=== PATIENT | female | born 1990 | race Caucasian/White ===

== ENCOUNTER 2020-01-10 10:35 | Emergency (ER) | payer MEDICAID, SELFPAY ==
[2020-01-10 10:42] VITALS: BP 123/77; PULSE 86; RESP 16; TEMP 36.9; O2SAT 98
--- NOTE | 2020-01-10 10:52 | ED.FEMALEGU ---
HPI - Female Genitourinary General Stated complaint: UTI Time Seen by Provider: 01/10/20 10:52 Source: patient and RN notes reviewed History of Present Illness HPI Narrative: Patient is a 29-year-old female who presents the urgent care with complaints of a possible UTI. Patient states that approximately 2 to 3 days ago she started having some burning with urination as well as frequency and urgency. Patient states that that last night she woke up with extreme back pain and vomited once this morning. Patient states she also noticed her urine was cloudy today. Patient denies of any known fever. Denies of abdominal pain. States that she took ibuprofen and started taking Azo 2 nights ago with her last dose being last night. Patient denies of any frequency of urinary tract infections. No other acute complaints. No acute distress noted. Patient aware of the plan of care. Some parts of this dictation were generated by voice recognition software and may contain typographical and/or grammatical inaccuracies. Related Data Allergies Allergy/AdvReac Type Severity Reaction Status Date / Time No Known Allergies Allergy Verified 01/10/20 10:59 Review of Systems Review of Systems: Narrative: CONSTITUTIONAL: Denies fever, chills, or sweats. EYES: Denies visual changes, redness, or discharge. ENT: Denies rhinorrhea, congestion, sore throat, or otalgia. CARDIOVASCULAR: Denies chest pain, palpitations, or edema. RESPIRATORY: Denies cough or dyspnea. GASTROINTESTINAL: Reports of one episode of vomiting without abdominal pain, nausea, diarrhea GENITOURINARY: Reports of dysuria, urinary urgency/frequency, cloudy urine SKIN: Denies rash or itching. MUSCULOSKELETAL: Reports of back pain resolved with ibuprofen NEUROLOGIC: Denies headache, numbness, or weakness. All other systems reviewed are negative, except as documented in HPI. PMFSH Comments At the time of my signature, I reviewed and agree with the nursing past medical, surgical, social, and family history. There is no relevant family history pertinent to the patient complaint. Exam Narrative: Exam Narrative: GENERAL: This is a well-nourished, well-developed patient, in no apparent distress. HEAD: normocephalic, atraumatic. EYES: PERRL. Sclera clear/white. Vision is grossly intact. EARS: External ears normal NOSE: External nose normal with no obvious nasal discharge, nares without redness, no rhinorrhea. THROAT: Mucous membranes moist NECK: Neck supple CARDIOVASCULAR: Regular rate and rhythm without murmurs, gallops, or rubs. RESPIRATORY: Clear to auscultation. Breath sounds equal bilaterally. No wheezes, rales, or rhonchi. GASTROINTESTINAL: Abdomen soft, non-tender, nondistended. Bowel sounds are active. SKIN: warm, intact with no suspicious lesions or rash, good texture and turgor. NEURO: awake, alert, and oriented to person, place and time. There were no obvious focal neurologic abnormalities. EXTREMITIES: No clubbing, cyanosis, or edema. No joint tenderness, effusion, or edema noted. No calf tenderness. Negative Homans sign bilaterally. BACK: Negative bilateral CVA tenderness Course Vital Signs Vital signs: Vital Signs Temperature 98.5 F 01/10/20 10:42 Pulse Rate 86 01/10/20 10:42 Respiratory Rate 16 01/10/20 10:42 Blood Pressure 123/77 01/10/20 10:42 Pulse Oximetry 98 01/10/20 10:42 Temperature 98.5 F 01/10/20 10:42 Pulse Rate 86 01/10/20 10:42 Respiratory Rate 16 01/10/20 10:42 Blood Pressure 123/77 01/10/20 10:42 Pulse Oximetry 98 01/10/20 10:42 Reviewed MDM - Female Genitourinary MDM Narrative Medical decision making narrative: Reviewed lab results with the patient. She is aware that urine analysis was indicative of a urinary tract infection. Advised the patient to complete oral antibiotic regimen as prescribed. Make sure to eat and drink with the medication. We will culture the urine and call if medication needs to be changed or stopped
== END 2020-01-10 11:05 | disposition home or self-care (01) ==
PROVIDERS: Emergency Provider Nurse Practitioner Family
DX: N39.0 Urinary tract infection, site not specified (principal)
CPT/HCPCS: 81003; 87077; 87086; 87088; 87186; 99213; G0463

== ENCOUNTER 2020-03-19 14:56 | Emergency (ER) | payer OTHER, SELFPAY ==
[2020-03-19 15:15] VITALS: BP 118/84; PULSE 84; RESP 18; TEMP 36.9; O2SAT 100
[2020-03-19 15:32] VITALS: BP 118/84; PULSE 84; RESP 18; TEMP 36.9; O2SAT 100
--- NOTE | 2020-03-19 15:45 | ED.GENADULT ---
HPI - General Adult General Chief complaint: Urogenital-Female Stated complaint: UTI COMPLAINT Source: patient Mode of arrival: ambulatory Limitations: no limitations History of Present Illness HPI narrative: 30 y/o female. PMH includes: None reported. Presents to Urgent Care Clinic today with acute complaints of urinary urgency and frequency in past 48 hours. She reports to know she has a UTI . No fever, chills, abdominal pain, flank pain, N/V, vaginal discharge. No hematuria. No additional acute c/o upon PE. Related Data Allergies Allergy/AdvReac Type Severity Reaction Status Date / Time No Known Allergies Allergy Verified 03/19/20 15:31 Review of Systems Review of Systems: Narrative: CONSTITUTIONAL: Denies fever, chills, sweats. EYES: Denies visual changes, redness, discharge. ENT: Denies rhinorrhea, congestion, sore throat, otalgia. CARDIOVASCULAR: Denies chest pain, palpitations, edema. RESPIRATORY: Denies dyspnea, wheezing, cough GASTROINTESTINAL: Denies abdominal pain, nausea, vomiting, diarrhea. GENITOURINARY: Positive dysuria, frequency. No hematuria. No abnormal discharge. SKIN: Denies rash or itching. MUSCULOSKELETAL: Denies acute back pain, joint pain, or myalgia. NEUROLOGIC: Denies numbness, or focal weakness. PSYCHIATRIC: Denies anxiety or depression. Exam Narrative: Exam Narrative: GENERAL: This is a well-nourished, well-developed patient, in no apparent distress. HEAD: normocephalic, atraumatic. EYES: PERRL. Sclera clear/white. Vision is grossly intact. EARS: External ears normal, auditory canals clear and without drainage, TMs normal without perforation. Hearing grossly intact. NOSE: External nose normal with no obvious nasal discharge, nares without redness, no rhinorrhea. THROAT: Mucous membranes moist, posterior pharynx clear. NECK: Neck supple, non-tender without lymphadenopathy, masses or thyromegaly. CARDIOVASCULAR: Regular rate and rhythm without murmurs, gallops, or rubs. RESPIRATORY: Clear to auscultation. Breath sounds equal bilaterally. No wheezes, rales, or rhonchi. GASTROINTESTINAL: Abdomen soft, non-tender, nondistended. Bowel sounds are active. No hepato-splenomegaly, or palpable masses. No guarding. SKIN: warm, intact with no suspicious lesions or rash, good texture and turgor. NEURO: awake, alert, and oriented to person, place and time. There were no obvious focal neurologic abnormalities. Steady gait EXTREMITIES: Normal range of motion. No edema. No calf tenderness. Negative Homans sign bilaterally. BACK: Nontender without deformity or crepitance. No flank tenderness. Course Vital Signs Vital signs: Vital Signs Temperature 36.9 C 03/19/20 15:15 Pulse Rate 84 03/19/20 15:15 Respiratory Rate 18 03/19/20 15:15 Blood Pressure 118/84 03/19/20 15:15 Pulse Oximetry 100 03/19/20 15:15 Temperature 36.9 C 03/19/20 15:32 Pulse Rate 84 03/19/20 15:32 Respiratory Rate 18 03/19/20 15:32 Blood Pressure 118/84 03/19/20 15:32 Pulse Oximetry 100 03/19/20 15:32 Medical Decision Making Differential Diagnosis Differential Diagnosis: Differential Diagnosis: Consideration of the following conditions may be warranted for the presenting problem, they are not final diagnoses: Cystitis, Nephrolithiasis, bacterial vaginosis, Nephritis, candidiasis, vaginitis, pyelonephritis, epididymitis, STD, syphilis, herpes. Medical Records Medical records reviewed: Yes I reviewed the patient's medical records. Vital Signs Vital Signs: Vital Signs Temperature 36.9 C 03/19/20 15:15 Pulse Rate 84 03/19/20 15:15 Respiratory Rate 18 03/19/20 15:15 Blood Pressure 118/84 03/19/20 15:15 Pulse Oximetry 100 03/19/20 15:15 Temperature 36.9 C 03/19/20 15:32 Pulse Rate 84 03/19/20 15:32 Respiratory Rate 18 03/19/20 15:32 Blood Pressure 118/84 03/19/20 15:32 Pulse Oximetry 100 03/19/20 15:32 Lab Data Lab results reviewed: Yes I reviewed the p
== END 2020-03-19 15:55 | disposition home or self-care (01) ==
PROVIDERS: Emergency Provider Nurse Practitioner Adult Health
DX: N39.0 Urinary tract infection, site not specified (principal)
CPT/HCPCS: 81003; 87086; 87088; 99213; G0463

== ENCOUNTER 2020-05-25 08:41 | Emergency (ER) | payer OTHER, SELFPAY ==
[2020-05-25 08:51] VITALS: BP 120/70; PULSE 88; RESP 18; TEMP 36.9; O2SAT 98
[2020-05-25 09:00] VITALS: BP 120/70; PULSE 88; RESP 18; TEMP 36.9; O2SAT 98
--- NOTE | 2020-05-25 09:41 | ED.SKABFB ---
HPI - Skin/Abscess/Foreign Bdy General Chief complaint: Skin/Abscess/Foreign Body Stated complaint: Rash on legs and armpit Time Seen by Provider: 05/25/20 09:04 Source: patient and RN notes reviewed Mode of arrival: ambulatory Limitations: no limitations History of Present Illness HPI narrative: Patient presents today complaining of pruritic rash to the bilateral legs, left axilla, and right forearm. Reports it started to the bilateral legs and is worsening. Denies recent illness, fever, new products at home, new foods or medications. She has been trying Neosporin without relief. States lesion started out as blisters, burst, then dry out and crusting to the scab. MD complaint: rash Related Data Allergies Allergy/AdvReac Type Severity Reaction Status Date / Time No Known Allergies Allergy Verified 05/25/20 09:00 Review of Systems Review of Systems: Narrative: CONSTITUTIONAL: Denies body aches, fever, chills, or sweats. EYES: Denies visual changes, redness, or discharge. ENT: Denies rhinorrhea, congestion, sore throat, or otalgia. CARDIOVASCULAR: Denies chest pain, palpitations, or edema. RESPIRATORY: Denies cough or dyspnea. GASTROINTESTINAL: Denies abdominal pain, nausea, vomiting, or diarrhea. GENITOURINARY: Denies dysuria or hematuria. SKIN: + Pruritic rash. MUSCULOSKELETAL: Denies back pain, joint pain, or myalgia. NEUROLOGIC: Denies headache, numbness, tingling, or weakness. PSYCH: Denies depression or anxiety. [facility] Past Medical History Medical History No pertinent past medical history Comments At time of signature, I have reviewed and agree with nursing past medical, surgical, social and family history unless otherwise noted. Please see nursing chart for further information. There is no relevant family history pertinent to the presenting complaint Exam Narrative: Exam Narrative: GENERAL: Well-appearing, well-nourished, and in no acute distress. HEAD: Normocephalic, atraumatic. EYES: EOMI. No redness or drainage. Conjunctivae normal. ENT: Mucous membranes pink and moist. NECK: Normal AROM. CHEST: No respiratory distress. EXTREMITIES: Normal range of motion. No edema. SKIN: Warm, dry. Capillary refill normal. Normal skin turgor. Multiple flat, erythematous, scabbed lesions to the bilateral upper and lower legs as well as the left axilla and 2 to the right forearm. No edema, fluctuance, induration, drainage, or crusting. NEURO: No focal deficits. Alert and oriented x3. Gait steady. PSYCH: Normal affect. No signs of depression or anxiety. Course Vital Signs Vital signs: Vital Signs Temperature 98.4 F 05/25/20 08:51 Pulse Rate 88 05/25/20 08:51 Respiratory Rate 18 05/25/20 08:51 Blood Pressure 120/70 05/25/20 08:51 Pulse Oximetry 98 05/25/20 08:51 Temperature 98.4 F 05/25/20 09:00 Pulse Rate 88 05/25/20 09:00 Respiratory Rate 18 05/25/20 09:00 Blood Pressure 120/70 05/25/20 09:00 Pulse Oximetry 98 05/25/20 09:00 Reviewed MDM - Skin/Abscess/Foreign Bdy Differential Diagnosis Differential diagnosis: Likely abscess of skin or subcutaneous tissue, viral exanthem, urticaria, herpes zoster, allergic reaction to drug, cellulitis, eczema, insect bites, impetigo, contact dermatitis and other (MRSA, staph) Critical Care Time Critical Care Time Critical Care Time: No Discharge Plan Discharge Clinical Impression: Rash Patient Disposition: Home, Self-Care Condition: Stable Instructions: Antibiotic Form, Acute Rash (ED) Additional Instructions: Please take the Bactrim and prednisone as prescribed until gone. Follow-up with your doctor on Thursday or Thursday if symptoms are not improving. Take Benadryl or another antihistamine for itching. Patient Language: American Prescriptions: New sulfamethoxazole-trimethoprim [Bactrim DS] 800-160 mg tablet 1 tablet PO Q12H 10 Days Qty: 20 RF:
== END 2020-05-25 10:00 | disposition home or self-care (01) ==
PROVIDERS: Emergency Provider Nurse Practitioner
DX: R21 Rash and other nonspecific skin eruption (principal)
CPT/HCPCS: 99213; G0463

== ENCOUNTER 2020-06-17 11:49 | Emergency (ER) | payer OTHER, SELFPAY ==
--- NOTE | 2020-06-17 11:53 | ED.SKABFB ---
HPI - Skin/Abscess/Foreign Bdy General Stated complaint: skin bacterial infection Time Seen by Provider: 06/17/20 11:54 Source: patient and RN notes reviewed History of Present Illness HPI narrative: Patient is a 30-year-old female who presents the urgent care with complaints of recurrent staph to the legs and underarms. Patient was seen at our facility on May 25 and treated with Bactrim and steroids. Patient states that it resolved briefly and then started to come back. Patient states that she has been changing her towels daily, not wearing the same clothes, washing her sheets, and doing all the things to avoid recurrent staph. Patient states the only thing that she has not changed is the bed Topper of her mattress. Patient denies of any fever, chills, nausea, vomiting. No other acute complaints. No acute distress noted. Patient aware of the plan of care. Some parts of this dictation were generated by voice recognition software and may contain typographical and/or grammatical inaccuracies. Related Data Home Medications Medication Instructions Recorded Confirmed No Home Medications 06/17/20 06/17/20 Allergies Allergy/AdvReac Type Severity Reaction Status Date / Time No Known Allergies Allergy Verified 06/17/20 12:04 Review of Systems Review of Systems: Narrative: CONSTITUTIONAL: Denies fever, chills, or sweats. EYES: Denies visual changes, redness, or discharge. ENT: Denies rhinorrhea, congestion, sore throat, or otalgia. CARDIOVASCULAR: Denies chest pain, palpitations, or edema. RESPIRATORY: Denies cough or dyspnea. GASTROINTESTINAL: Denies abdominal pain, nausea, vomiting, or diarrhea. GENITOURINARY: Denies dysuria or hematuria. SKIN: Reports of a painful itchy rash to the bilateral legs and underarms MUSCULOSKELETAL: Denies back pain, joint pain, or myalgia. NEUROLOGIC: Denies headache, numbness, or weakness. All other systems reviewed are negative, except as documented in HPI. [facility] Past Medical History Medical History No pertinent past medical history Comments At the time of my signature, I reviewed and agree with the nursing past medical, surgical, social, and family history. There is no relevant family history pertinent to the patient complaint. Exam Narrative: Exam Narrative: GENERAL: This is a well-nourished, well-developed patient, in no apparent distress. HEAD: normocephalic, atraumatic. EYES: PERRL. Sclera clear/white. Vision is grossly intact. EARS: External ears normal NOSE: External nose normal with no obvious nasal discharge, nares without redness, no rhinorrhea. THROAT: Mucous membranes moist NECK: Neck supple SKIN: Multiple scattered areas of notable open wound/obvious staph infection to bilateral thighs, bilateral lower legs, and bilateral underarms NEURO: awake, alert, and oriented to person, place and time. There were no obvious focal neurologic abnormalities. EXTREMITIES: No clubbing, cyanosis, or edema. Course Vital Signs Vital signs: Vital Signs Temperature 99.5 F 06/17/20 11:55 Pulse Rate 84 06/17/20 11:55 Respiratory Rate 18 06/17/20 11:55 Blood Pressure 138/121 H 06/17/20 11:55 Pulse Oximetry 100 06/17/20 11:55 Temperature 99.5 F 06/17/20 11:55 Pulse Rate 84 06/17/20 11:55 Respiratory Rate 18 06/17/20 11:55 Blood Pressure 138/121 H 06/17/20 11:55 Pulse Oximetry 100 06/17/20 11:55 Reviewed-repeat pressure 126/81 within normal limits MDM - Skin/Abscess/Foreign Bdy MDM Narrative Medical decision making narrative: Advised the patient to complete oral antibiotic regimen as prescribed. Use prescription cream to the affected areas. Continue washing her sheets, clothing, towels after each use. Be sure to change the bed Topper. Do not reuse razors. Be sure to eat and drink with the medication. If you develop any increase in the spread of the rash without notable resolution?go to the
[2020-06-17 11:55] VITALS: BP 126/81; PULSE 84; RESP 18; TEMP 37.5; O2SAT 100
== END 2020-06-17 12:10 | disposition home or self-care (01) ==
PROVIDERS: Emergency Provider Nurse Practitioner Family
DX: R21 Rash and other nonspecific skin eruption (principal)
CPT/HCPCS: 99213; G0463

== ENCOUNTER 2020-09-18 09:06 | Emergency (ER) | payer OTHER, SELFPAY ==
[2020-09-18 09:10] VITALS: BP 135/82; PULSE 88; RESP 16; TEMP 36.9; O2SAT 99
--- NOTE | 2020-09-18 09:34 | ED.URI ---
HPI - URI/Sore Throat General Chief Complaint: Upper Respiratory Infection Stated Complaint: upper respiratory Time Seen by Provider: 09/18/20 09:16 Source: patient and RN notes reviewed Mode of arrival: ambulatory Limitations: no limitations History of Present Illness HPI Narrative: Patient presents today complaining of 5-day history of voice hoarseness with a 4-day history productive cough with green sputum as well as nasal congestion with green sputum. Denies fever, shortness of breath, wheezing, sore throat or ear pain, headache, nausea, vomiting, diarrhea. Denies history of asthma or COPD. She has been taking Caitlin-D and Robitussin sinus. States the Caitlin-D does help with her nasal congestion. Patient uses an e-cigarette. Denies history of seasonal allergies. MD elicited complaint: cough and nasal congestion Related Data Allergies Allergy/AdvReac Type Severity Reaction Status Date / Time No Known Allergies Allergy Verified 09/18/20 09:18 Review of Systems Review of Systems: Narrative: CONSTITUTIONAL: Denies body aches, fever, chills, or sweats. EYES: Denies visual changes, redness, or discharge. ENT: Denies rhinorrhea, sore throat, or otalgia. + Nasal congestion, hoarseness CARDIOVASCULAR: Denies chest pain, palpitations, or edema. RESPIRATORY: Denies dyspnea.+ Cough GASTROINTESTINAL: Denies abdominal pain, nausea, vomiting, or diarrhea. GENITOURINARY: Denies dysuria or hematuria. SKIN: Denies rash, itching, or wounds. MUSCULOSKELETAL: Denies back pain, joint pain, or myalgia. NEUROLOGIC: Denies headache, numbness, tingling, or weakness. PSYCH: Denies depression or anxiety. [facility] Past Medical History Medical History No pertinent past medical history Social History Social History (Updated 09/18/20 @ 09:36 by Brenda Milian, [facility], ) Smoking status: Current every day smoker Tobacco type: e-cigarettes/vaping Comments At time of signature, I have reviewed and agree with nursing past medical, surgical, social and family history unless otherwise noted. Please see nursing chart for further information. There is no relevant family history pertinent to the presenting complaint Exam Narrative: Exam Narrative: GENERAL: Well-appearing, well-nourished, and in no acute distress. HEAD: Normocephalic, atraumatic. EYES: EOMI. No redness or drainage. Conjunctivae normal. ENT: Mucous membranes pink and moist. Nares clear. Nasal turbinates mildly edematous. No rhinorrhea. TMs normal bilaterally. Throat normal. Uvula midline. NECK: Normal AROM. Supple. No lymphadenopathy. CHEST: No respiratory distress. Clear to auscultation. Tight cough noted. HEART: Regular rate and rhythm. No murmur appreciated. Normal peripheral pulses. EXTREMITIES: Normal range of motion. No edema. SKIN: Warm, dry, no rash. Capillary refill normal. Normal skin turgor. NEURO: No focal deficits. Alert and oriented x3. Gait steady. PSYCH: Normal affect. No signs of depression or anxiety. Course Vital Signs Vital signs: Vital Signs Temperature 98.4 F 09/18/20 09:10 Pulse Rate 88 09/18/20 09:10 Respiratory Rate 16 09/18/20 09:10 Blood Pressure 135/82 09/18/20 09:10 Pulse Oximetry 99 09/18/20 09:10 Temperature 98.4 F 09/18/20 09:10 Pulse Rate 88 09/18/20 09:10 Respiratory Rate 16 09/18/20 09:10 Blood Pressure 135/82 09/18/20 09:10 Pulse Oximetry 99 09/18/20 09:10 Reviewed. Pt has been instructed to follow up with her PCP regarding her elevated blood pressure today. MDM - URI/Sore Throat Differential Diagnosis Differential diagnosis: Likely upper respiratory infection, otitis media, sinusitis, viral infection, bronchitis, pharyngitis and other (Rhinitis, seasonal allergies) Critical Care Time Critical Care Time Critical Care Time: No Discharge Plan Discharge Clinical Impression: Bronchitis, Seasonal allergies Patient Dis
== END 2020-09-18 09:40 | disposition home or self-care (01) ==
PROVIDERS: Emergency Provider Nurse Practitioner
DX: J40 Bronchitis, not specified as acute or chronic (principal); J30.9 Allergic rhinitis, unspecified; F17.200 Nicotine dependence, unspecified, uncomplicated
CPT/HCPCS: 99213; G0463

== ENCOUNTER 2020-10-19 16:27 | Emergency (ER) | payer OTHER, SELFPAY ==
[2020-10-19 16:32] VITALS: BP 131/88; PULSE 86; RESP 18; TEMP 37.2; O2SAT 99
--- NOTE | 2020-10-19 17:14 | ED.FEMALEGU ---
HPI - Female Genitourinary General Chief complaint: Urogenital-Female Stated complaint: Possible UTI Time Seen by Provider: 10/19/20 17:15 Source: patient Mode of arrival: ambulatory Limitations: no limitations History of Present Illness HPI Narrative: Shagufta Lucas is a 30 yo female who comes to [facility] with dysuria and difficulty urinating. Started on Thursday, drank a lot of water and got little bit better but has gotten worse since then and today was unable to urinate this afternoon Related Data Allergies Allergy/AdvReac Type Severity Reaction Status Date / Time No Known Allergies Allergy Verified 10/19/20 17:03 Review of Systems Review of Systems: Narrative: CONSTITUTIONAL: Denies fever, chills, sweats. EYES: Denies visual changes, redness, discharge. ENT: Denies rhinorrhea, congestion, sore throat, otalgia. CARDIOVASCULAR: Denies chest pain, palpitations, edema. RESPIRATORY: Denies dyspnea, wheezing, cough GASTROINTESTINAL: Denies abdominal pain, nausea, vomiting, diarrhea. GENITOURINARY: Has dysuria, hematuria, abnormal discharge SKIN: Denies rash or itching. NEUROLOGIC: Denies numbness, or focal weakness. PSYCHIATRIC: Denies anxiety or depression. PMFSH Past Medical History Medical History No pertinent past medical history Social History Social History Smoking status: Current every day smoker Tobacco type: e-cigarettes/vaping Comments At time of signature, I agree with nursing past medical, surgical, social and family history. There is no relevant family history pertinent to the presenting complaint. Exam Narrative: Exam Narrative: GENERAL: This is a well-nourished, well-developed patient, in mild distress. HEAD: normocephalic, atraumatic. EYES: Sclera clear/white. Vision is grossly intact. EARS: External ears normal, . Hearing grossly intact. NOSE: External nose normal without nasal discharge, nares without redness, no rhinorrhea. THROAT: Mucous membranes moist, NECK: Neck supple, non-tender CARDIOVASCULAR: Regular rate and rhythm without murmurs, gallops, or rubs. RESPIRATORY: Clear to auscultation. Breath sounds equal bilaterally. No wheezes, rales, or rhonchi. GASTROINTESTINAL: Abdomen soft, SKIN: warm, intact with no suspicious lesions or rash, good texture and turgor. NEURO: awake, alert, and oriented to person, place and time. There were no obvious focal neurologic abnormalities. Steady gait EXTREMITIES: Normal range of motion. BACK: Nontender without deformity Course Course Emergency Course: Patient comes to [facility] with 5 days of dysuria, improved with water intake but has worsened this afternoon is unable to urinate Start on Keflex Diflucan after finishing Keflex Vital Signs Vital signs: Vital Signs Temperature 99 F 10/19/20 16:32 Pulse Rate 86 10/19/20 16:32 Respiratory Rate 18 10/19/20 16:32 Blood Pressure 131/88 10/19/20 16:32 Pulse Oximetry 99 10/19/20 16:32 Temperature 99 F 10/19/20 16:32 Pulse Rate 86 10/19/20 16:32 Respiratory Rate 18 10/19/20 16:32 Blood Pressure 131/88 10/19/20 16:32 Pulse Oximetry 99 10/19/20 16:32 MDM - Female Genitourinary Differential Diagnosis Differential diagnosis: Likely urinary tract infection, cystitis and other Lab Data Labs: Urine Glucose Negative Reference Range: Negative Urine Bilirubin Negative Reference Range: Negative Urine Ketone Negative Reference Range: Negative Urine Specific [place] 1.025 Reference Range:1.001-1.035 Urine Blood Trace
== END 2020-10-19 17:34 | disposition home or self-care (01) ==
PROVIDERS: Emergency Provider Nurse Practitioner
DX: N39.0 Urinary tract infection, site not specified (principal); F17.200 Nicotine dependence, unspecified, uncomplicated
CPT/HCPCS: 81003; 87077; 87086; 87088; 87186; 99213; G0463

== ENCOUNTER 2021-10-02 17:49 | Emergency (ER) | payer OTHER, SELFPAY ==
[2021-10-02 17:54] VITALS: BP 117/70; PULSE 86; RESP 18; TEMP 36.6; O2SAT 99
--- NOTE | 2021-10-02 18:11 | ED.FEMALEGU ---
HPI - Female Genitourinary General Chief complaint: Urogenital-Female Stated complaint: Poss uti Time Seen by Provider: 10/02/21 18:11 Source: patient Mode of arrival: ambulatory Limitations: no limitations History of Present Illness HPI Narrative: Ms. Echeverria is a 31-year-old female patient presenting to the clinic today with complaints of urinary urgency, frequency, and burning x2 days. She reports that she is having a strong odor in her urine as well. She denies any nausea vomiting flank pain or abdominal pain. Related Data Allergies Allergy/AdvReac Type Severity Reaction Status Date / Time No Known Allergies Allergy Verified 10/02/21 18:09 Review of Systems Review of Systems: Pertinent positives per HPI. Patient denies any fever, chills, rash, headache, visual changes, dizziness, cough, runny nose, sore throat, shortness of breath, chest pain, palpitations, nausea, vomiting, diarrhea, constipation, abdominal pain. PMFSH Past Medical History Medical History No pertinent past medical history Social History Social History Smoking status: Current every day smoker Tobacco type: e-cigarettes/vaping Comments At the time of my signature, I reviewed and agree with the nursing past medical, surgical, social, and family history. There is no relevant family history pertinent to the patient complaint. Exam Narrative: General: Well-developed, well nourished, in no apparent distress. Head: Normocephalic, atraumatic. Cardio: Regular rate and rhythm, s1 and s2 normal, no murmur appreciated. Resp: Clear to auscultation bilaterally, no rhonchi, rales, wheezing or rubs. Abdomen: Soft, pliable, bowel sounds present in all quadrants, non-tender to palpation, no organomegly, no CVAT tenderness. Course Course Emergency Course: Portions of this record may have been created with voice recognition software. Level of Care: Express Care Visit Vital Signs Vital signs: Vital Signs Temperature 36.6 C 10/02/21 17:54 Pulse Rate 86 10/02/21 17:54 Respiratory Rate 18 10/02/21 17:54 Blood Pressure 117/70 06/08/22 17:54 Pulse Oximetry 99 10/02/21 17:54 Oxygen Delivery Room Air 10/02/21 17:54 Temperature 36.6 C 10/02/21 17:54 Pulse Rate 86 10/02/21 17:54 Respiratory Rate 18 10/02/21 17:54 Blood Pressure 117/70 10/02/21 17:54 Pulse Oximetry 99 10/02/21 17:54 Oxygen Delivery Room Air 10/02/21 17:54 Vital signs reviewed MDM - Female Genitourinary MDM Narrative Medical decision making narrative: At the time of visit patient is resting comfortably on the exam table. She is nontender to palpation over the suprapubic area. Urine was obtained and was positive for 1+ leukocyte. I will go ahead and send her urine for culture and prescribe some Macrobid. Supportive measures were discussed with the patient she voiced understanding of discharge instructions and agrees to treatment plan. Differential Diagnosis Differential diagnosis: Likely urinary tract infection and cystitis Lab Data Labs: Urine Glucose Negative Reference Range: Negative Urine Bilirubin Negative Reference Range: Negative Urine Ketone Negative Reference Range: Negative Urine Specific [place] 1.010 Reference Range:1.001-1.035 Urine Blood Negative Reference Range: Negative * * Urine pH 6.5 Reference Range: 5.0-9.0 Urine Protein Negative
== END 2021-10-02 18:19 | disposition home or self-care (01) ==
PROVIDERS: Emergency Provider Nurse Practitioner Family
DX: N39.0 Urinary tract infection, site not specified (principal); F17.290 Nicotine dependence, other tobacco product, uncomplicated
CPT/HCPCS: 81003; 87086; 99213; G0463